=== PATIENT | male | born 1960 | race Two or more races ===

== ENCOUNTER 2025-05-19 03:52 | Emergency (ER) | payer OTHER ==
[~2025-05-19] VITALS: Ht 170.2 cm; Wt 97.5 kg
[2025-05-19] MEDS ORDERED: ELIQUIS5 MG PO (04:07)
[2025-05-19] MEDS ORDERED: AMLODIPINE-OLM1 EAC2 (04:07)
[2025-05-19] MEDS ORDERED: TOPROL XL50 M1 PO (04:07)
[2025-05-19] MEDS ORDERED: 0.9 % SODIUM CHLORIDE 1,000 ML IV SCH (05:00)
[2025-05-19] MEDS ORDERED: ONDANSETRON HCL 2 MG/ML VIAL IV ONE (05:00)
[2025-05-19] MEDS ORDERED: TAMSULOSIN HCL 0.4 MG CAP PO ONE (05:00)
[2025-05-19] MEDS ORDERED: KETOROLAC TROMETHAMINE 30 MG VIAL IV ONE (05:00)
[2025-05-19 05:56] LABS: BASO % 0.6 % (0.1-1.2); EOS # 0.07 (0.04-0.54); EOS % 0.5 % (0.7-7.0); LYMPH # 1.37 (1.18-3.74); LYMPH % 10.3 % (19.3-53.1); MEAN PLATELET VOLUME 9.50 fl (9.4-12.4); MONO # 0.57 (0.24-0.82); MONO % 4.3 % (4.7-12.5); NEUT # 11.12 (1.56-6.13); NEUT % 83.9 % (34.0-71.1); RED CELL DISTRIBUTION WIDTH 12.4 % (11.6-14.4)
[2025-05-19 06:10] LABS: ALT/SGPT 31.0 U/L (12-78); AST/SGOT 31.0 U/L (15-37); BILIRUBIN TOTAL 0.37 mg/dL (0.3-1.2); BUN CREA RATIO 14.0 (7.0-25.0); CREATININE SERUM 1.33 mg/dL (0.70-1.30); GFR 53.96; GLOBULINA 4.3 G/DL (2.4-3.5); GLUCOSE FASTING 124.0 mg/dL (65-100); OSMOLALITY SERUM 285.0 MOSM/KG (275-295)
[2025-05-19] MEDS ORDERED: KETO10TA2 PO (07:18)
[2025-05-19] MEDS ORDERED: CIPRO500 MG PO (07:18)
[2025-05-19] MEDS ORDERED: TAMS0.4C PO (07:18)
[2025-05-19 07:58] LABS: URINE APPEARANCE Clear; URINE BILIRRUBIN Negative (NEGATIVE); URINE BLOOD Large; URINE COLOR Yellow; URINE GLUCOSE Negative (NEGATIVE); URINE KETONE Negative (NEGATIVE); URINE LEUKOCYTE Negative; URINE NITRATE Negative; URINE PROTEIN Trace (NEGATIVE); URINE UROBILINOGEN 0.2 E.U./dl
[2025-05-19 07:59] LABS: URINE BACTERIA 4.7 uL (0.0-1933); URINE RBC 524.7 uL (0.0-20.8); URINE WBC 13.7 uL (0.0-23.2)
[2025-05-19 08:39] LABS: URINE CAST 0.00 uL (0.0-1.40); URINE EPITHELIAL CELLS 0.7 uL (0.0-38.8)
== END 2025-05-19 07:31 | disposition home or self-care (01) ==
LOC: ER 03:52
PROVIDERS: General Practice
DX: R10.9 Unspecified abdominal pain (principal); I10 Essential (primary) hypertension; Z88.0 Allergy status to penicillin
CPT/HCPCS: 36415; 74176; 96365; 96366; 99284; J1885; J2405; J7030